=== PATIENT | female | born 1995 | race Caucasian/White ===

== ENCOUNTER 2017-05-14 20:30 | Emergency (ER) | payer BC, OTHER ==
--- NOTE | 2017-05-14 20:46 | PDOC ---
History of Present Illness - General History Source: Patient Exam Limitations: No Limitations - History of Present Illness Initial Comments: 05/14/17 20:47 The patient is a 22 year old female presenting with her father (Surgeon at [employer]), who presents to the emergency department with nausea, headache, loss of appetite and nasal infection for the past 2 weeks. She reports that roughly 2 weeks ago she was playing soccer and ran into another player, colliding with the right side of her head. She denies any loss of consciousness. Around the same time she began to have a sinus infection, for which her father gave her antibiotics (Augmentin). She describes her headache as ranging from mild to moderate, without radiation. She notes that light exacerbates her headache. She denies any visual changes. The patient has a past medical history significant for a concussion back in high school. The patient denies chest pain, shortness of breath and dizziness. Denies fever, chills, vomit, diarrhea and constipation. PAST MEDICAL HISTORY: Concussion. PAST SURGICAL HISTORY: no significant history FAMILY HISTORY: no pertinent history SOCIAL HISTORY: Pt lives with family and is employed. MEDICATIONS: reviewed ALLERGIES: As per nursing notes General: (+) Loss of appetite. No fevers or chills, no weakness, no weight loss HEENT: (+) Nasal infection. No change in vision. No sore throat,. No ear pain CardioVascular: No chest pain or shortness of breath Respiratory:No cough, or wheezing. Gastrointestinal: (+) Nausea. No vomiting, diarrhea or constipation, No rectal bleeding Genitourinary: No dysuria, hematuria, or frequency Musculoskeletal: No joint or muscle pain or swelling Neurologic: (+) Headache. No vertigo, dizziness or loss of consciousness Psychiatric: nor depression Skin: No rashes or easy bruising Endocrine: no increased thirst or abnormal weight change Allergic: no skin or latex allergy All other systems reviewed and normal GENERAL: The patient is awake, alert, and fully oriented, in no acute distress. HEAD: (+) There is a contusion on the left side of her face with tenderness. NECK: (+) Some tenderness on palpation of the left lateral neck. HEENT: Sinus are nontender to palpation EYES: Pupils equal, round and reactive to light, extraocular movements intact, sclera anicteric, conjunctiva clear. EXTREMITIES: Normal range of motion, no edema. MUSCULOSKELETAL: (+) Some tenderness on palpation of the left lateral neck. Cervical spine is nontender. NEUROLOGICAL: Normal speech, normal gait. PSYCH: Normal mood, normal affect. SKIN: Warm, Dry, normal turgor, no rashes or lesions noted. 05/14/17 20:47 <Andrea Harkins - Last Filed: 05/14/17 20:47> - General History Source: Patient Exam Limitations: No Limitations - History of Present Illness Initial Comments: A portion of this note was documented by scribe services under my direction. I have reviewed the details of the note, within reason, and agree with the documentation. The case summary and management plan written by me. Assessment and plan: This is a 22-year-old female who comes in with her father for evaluation status post head injury 2 weeks ago and now with some headache and nausea. Patient's history also significant for a recent sinus infection that she is on an antibiotic for. Patient had a head and sinus CT that does show left maxillary and ethmoid chronic sinus disease but no acute pathology of the brain. Patient given Zofran for nausea and Toradol for headache Patient discharged home will follow-up with an ENT and her primary care doctor <Maureen Davis I - Last Filed: 05/14/17 22:08> - General Chief Complaint: Injury Stated Complaint: HIT HEAD, Time Seen by Provider: 05/14/17 20:34 Past History <Andrea Harkins - Last Filed: 05/14/17 20:47> <Maureen Davis I - Last Filed: 05/14/17 22:08> - Past Medical History Allergies/Adverse Reactions: Allergies Allergy/AdvReac Type Severity Reaction Status Date / Time No Known Allergies Allergy Verified 05/14/17 22:01 Home Medications: Ambulatory Orders Iud 1 05/14/17 Ondansetron [Zofran Odt -] 4 mg SL TID PRN #12 od.tablet 05/14/17 *DC/Admit/Observation/Transfer - Attestations Scribe Attestion: 05/14/17 20:47 Documentation prepared by Andrea Harkins, acting as medical detail representative for Maureen Davis MD <Andrea Harkins - Last Filed: 05/14/17 20:47> - Discharge Dispostion Admit: No <Maureen Davis I - Last Filed: 05/14/17 22:08> Diagnosis at time of Disposition: Concussion Qualifiers: Encounter type: initial encounter Loss of consciousness presence/duration: without LOC Qualified Code(s): S06.0X0A - Concussion without loss of consciousness, initial encounter Sinusitis Qualifiers: Sinusitis location: ethmoidal Chronicity: unspecified Qualified Code(s): J32.2 - Chronic ethmoidal sinusitis - Discharge Dispostion Disposition: HOME - Prescriptions Prescriptions: Ondansetron [Zofran Odt -] 4 mg SL TID PRN #12 od.tablet PRN Reason: Nausea - Patient Instructions Additional Instructions: For the pain you can take Tylenol. Continue your antibiotics as prescribed Return to the emergency department immediately with ANY new, persistent or worsening symptoms. Continue any medications as previously prescribed by your physician. You should follow up with your primary doctor as soon as possible regarding today's emergency department visit. . Please make sure your doctor reviews the results of your emergency evaluation. Thank you for coming to the Emergency Department today for your care. It was a pleasure to see you today. Please note that your evaluation is INCOMPLETE until you follow-up with your doctor.
[2017-05-14 20:54] VITALS: BP 104/69; PULSE 61; TEMP 98.4; BMI 19.6
[2017-05-14] MEDS ORDERED: ONDANSETRON *ODT* 4 MG TABLET SL ONE (21:19)
[2017-05-14] MEDS ORDERED: ONDANSETRON *ODT* 4 MG TABLET ONE (21:22)
[2017-05-14] MEDS ORDERED: KETOROLAC TROMETHAMINE 60 MG/2 ML VIAL IM ONE (22:02)
[2017-05-14] MEDS ORDERED: KETOROLAC TROMETHAMINE 60 MG/2 ML VIAL ONE (22:10)
== END 2017-05-14 22:16 | disposition home or self-care (01) ==
LOC: FER 20:30
PROC: 3E0233Z Introduction of Anti-inflammatory into Muscle, Percutaneous Approach (ICD-10-PCS; principal; 2017-05-14)
DX: S06.0X0A Concussion without loss of consciousness, initial encounter (principal); J32.2 Chronic ethmoidal sinusitis; X58.XXXA Exposure to other specified factors, initial encounter; Y93.66 Activity, soccer; Y92.9 Unspecified place or not applicable
CPT/HCPCS: 70450-TC; 70486-TC; 84703; 99281-25